=== PATIENT | female | born 1965 | race Caucasian/White ===

== ENCOUNTER → 2016-12-04 | Outpatient (CLI) | payer BC, MEDICARE | LOC: MW.CHFP 08:31 | PROVIDERS: ATTEND Nurse Practitioner Family | DX: Z00.00 Encounter for general adult medical examination without abnormal findings (principal); E03.9 Hypothyroidism, unspecified; M54.9 Dorsalgia, unspecified; G89.29 Other chronic pain; Z98.84 Bariatric surgery status | CPT/HCPCS: 36415; 80053; 80061; 80177; 82607; 82652; 82728; 84443; 85027 ==

== ENCOUNTER → 2017-01-18 | Outpatient (CLI) | payer BC, MEDICARE ==
--- NOTE | 2017-01-18 13:52 | MY ---
EXAMINATION: Bilateral digital mammography utilizing CAD. HISTORY: Screening exam. Comparison is made to previous studies dated 09/04/2013. FINDINGS: Bilateral fibroglandular densities. There been intervally placed subpectoral silicone implants. There is a single view asymmetry noted w ithin the inferior left breast, mid depth. Otherwise, no suspicious calcifications, masses or architectural distortions. No pathologic appearing lymph nodes, no abnormal skin thickening or nipple inversion. Other CAD highlighted regions appear normal at this time. IMPRESSION: BI-RADS category 0 - Incomplete study. Left breast diagnostic is needed for further evaluation. THE FALSE-NEGATIVE RATE OF MAMMOGRAM IS APPROXIMATELY 10%. MANAGEMENT OF A PALPABLE ABNORMALITY MUST BE BASED UPON CLINICAL GROUNDS. SENSITIVITY FOR DETECTION OF ABNORMALITIES IN DENSE BREASTS IS LOW. NOTE: A letter will be sent to the patient regarding findings. [facility] -- DARIELA Baptiste [phone] - FAX [phone]
== END ==
LOC: MW.MAM 09:17
PROVIDERS: ATTEND Nurse Practitioner Family
DX: Z12.31 Encounter for screening mammogram for malignant neoplasm of breast (principal)
CPT/HCPCS: G0202; G0202-26

== ENCOUNTER 2017-01-20 09:09 | Day surgery (SDC) | payer BC, MEDICARE ==
[~2017-01-20 09:09] MED LIST: Lactated Ringers 1,000 ML IV SCH; Sodium Chloride 0.9% 10 ML Syringe FLUSH PRN; Sodium Chloride 0.9% 2.5 ML Syringe FLUSH PRN
[2017-01-20] MEDS ORDERED: fentaNYL 100 MCG/2 ML SDV ONE (09:44)
[2017-01-20] MEDS ORDERED: Propofol 200 MG/20 ML SDV ONE ×2 (09:44→12:23)
[2017-01-20] MEDS ORDERED: Midazolam 1 MG/ML 2 ML SDV ONE (09:44)
--- NOTE | 2017-01-20 10:16 | PCM.PREANE ---
Preanesthetic Assessment - Anesthesia/Transfusion/Family Hx Anesthesia History: Prior Anesthesia Without Reaction Family History of Anesthesia Reaction: No Transfusion History: No Prior Transfusion(s) - Review of Systems General: No Symptoms Pulmonary: No Symptoms Cardiovascular: No Symptoms Gastrointestinal: Constipation Neurological: No Symptoms Other: Reports: None - Physical Assessment O2 Sat by Pulse Oximetry: 100 Respiratory Rate: 16 Vital Signs: Last Vital Signs Temp 36.4 C 01/20/17 09:43 Pulse 74 01/20/17 09:43 Resp 16 01/20/17 09:43 BP 92/74 01/20/17 09:43 Pulse Ox 100 01/20/17 09:43 Height: 1.65 m Weight: 75.2 kg ASA Class: 2 Mental Status: Alert & Oriented x3 Airway Class: Mallampati = 2 Dentition: Reports: Normal Dentition Thyro-Mental Finger Breadths: 3 Mouth Opening Finger Breadths: 2 ROM/Head Extension: Full Lungs: Clear to auscultation, Normal respiratory effort Cardiovascular: Regular Rate, Regular Rhythm - Allergies Allergies/Adverse Reactions: Allergies Allergy/AdvReac Type Severity Reaction Status Date / Time amoxicillin trihydrate Allergy Difficulty Verified 04/08/16 11:12 [From Augmentin] Breathing aspirin Allergy Vomiting Verified 04/08/16 11:12 ceftriaxone sodium Allergy Difficulty Verified 04/08/16 11:12 [From Rocephin] Breathing ciprofloxacin [From Cipro] Allergy Swelling Verified 01/18/17 08:16 codeine Allergy Difficulty Verified 04/08/16 11:12 Breathing morphine Allergy Hallucinati Verified 04/08/16 11:12 ons NSAIDS (Non-Steroidal Allergy Shortness Verified 01/18/17 08:16 Anti-Inflamma of Breath Penicillins Allergy Difficulty Verified 04/08/16 11:12 Breathing potassium clavulanate Allergy Difficulty Verified 04/08/16 11:12 [From Augmentin] Breathing all narcotics Allergy Lethargy Uncoded 01/18/17 08:17 - Blood Blood Available: No - Anesthesia Plan Pre-Op Medication Ordered: None - Acknowledgements Anesthesia Type Planned: MAC Pt an Appropriate Candidate for the Planned Anesthesia: Yes Alternatives and Risks of Anesthesia Discussed w Pt/Guardian: Yes Pt/Guardian Understands and Agrees with Anesthesia Plan: Yes PreAnesthesia Questionnaire Cardiovascular History: Reports: Other (see below) Other Cardiovascular History: HTN in the past but has lost weight and no longer needs to be on BP med Genitourinary History: Reports: None Musculoskeletal History: Reports: Back pain, chronic, Fracture Other Musculoskeletal History: arthropathy of sacroiliac joint, chronic pain syndrome, failed back syndrome Neurological History: Reports: Other (see below) Other Neuro History: AAT (alpha-1 antitrypsin) deficiency Psychiatric History: Reports: Anxiety, Depression Endocrine/Metabolic History: Reports: Hypothyroidism - Infectious Disease History Infectious Disease History: Reports: Chicken pox, Mumps - Past Surgical History GI Surgical History: Reports: Colonoscopy (multiple, last one 2012, h/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), Other (see below) (gastric band procedure) Female Surgical History: Reports: Hysterectomy Musculoskeletal Surgical History: Reports: Other (see below) (ankle surgery) Other Musculoskeletal Surgeries/Procedures:: back fusion - SUBSTANCE USE Smoking Status *Q: Never Smoker Second Hand Smoke Exposure: No Days Per Week of Alcohol Use: 0 Recreational Drug Use History: No - HOME MEDS Home Medications: Home Meds Fexofenadine [Susan] 180 mg PO DAILY 02/21/14 [History] Levothyroxine 0.05 mg PO DAILY 02/21/14 [History] DULoxetine [Cymbalta] 30 mg PO DAILY 04/08/16 [History] Ascorbate Calcium [Vitamin C] 500 mg PO DAILY 01/18/17 [History] L.acidoph,Paracasei, B.lactis [Probiotic] 1 tab PO DAILY 01/18/17 [History] Ultra Inflamax 1 dose PO DAILY 01/18/17 [History] - CURRENT (IN HOUSE) MEDS Current Meds: Current Medications Lactated Ringer's (Ringers, Lactated) 1,000 mls @ 125 mls/hr IV ASDIRECTED ENMA Last Admin: 01/20/17 09:45 Dose: 125 mls/hr Sodium Chloride (Saline Flush) 10 ml FLUSH ASDIRECTED PRN PRN Reason: Keep Vein Open Sodium Chloride (Saline Flush) 2.5 ml FLUSH ASDIRECTED PRN PRN Reason: Keep Vein Open Discontinued Medications Fentanyl (Sublimaze) Confirm Administered Dose 100 mcg .ROUTE .STK-MED ONE Stop: 01/20/17 09:45 Midazolam HCl (Versed 1 Mg/Ml) Confirm Administered Dose 2 mg .ROUTE .STK-MED ONE Stop: 01/20/17 09:45 Propofol (Diprivan 20 Ml) Confirm Administered Dose 200 mg .ROUTE .STK-MED ONE Stop: 01/20/17 09:45
--- NOTE | 2017-01-20 12:02 | PCM.OPNOTE ---
- General Post-Op/Procedure Note Date of Surgery/Procedure: 01/20/17 Operative Procedure(s): Colonoscopy Findings: Normal colon with mild diverticulosis Pre Op Diagnosis: History of colon polyps Post-Op Diagnosis: Diverticulosis Anesthesia Technique: KARLA Primary Surgeon: Irina Dickinson Condition: Good
--- NOTE | 2017-01-20 12:25 | PCM.POSTAN ---
POST ANESTHESIA ASSESSMENT - MENTAL STATUS Mental Status: alert, oriented - RESPIRATORY Respiratory Status: respiratory rate WNL, airway patent, O2 saturation stable - CARDIOVASCULAR CV Status: pulse rate WNL, blood pressure stable - GASTROINTESTINAL GI Status: no symptoms - POST OP HYDRATION Hydration Status: adequate & stable - OBSERVATIONS Free Text/Narrative:: no anesthesia problems
[2017-01-20 12:32] VITALS: BP 100/58
--- NOTE | 2017-01-20 20:15 | OR ---
SURGEON: LUIS ALBERTO CROCKER MD DATE OF PROCEDURE: 01/20/2017 PREOPERATIVE DIAGNOSIS: Screening colonoscopy. POSTOPERATIVE DIAGNOSIS: Diverticulosis. PROCEDURE PERFORMED: Screening colonoscopy. INSTRUMENT USED: Olympus colonoscope. ANESTHESIA: MAC. EXTENT OF EXAM: To the cecum. PREPARATION: Good. LIMITATIONS: None. INDICATIONS FOR EXAMINATION: The patient is a 51-year-old female, who presents for screening colonoscopy. The patient and I discussed the procedure as well as expected perioperative course. We discussed the risks including bleeding, infection, damage to surrounding structures including perforation. The patient verbalized understanding and wishes to proceed. PROCEDURE IN DETAIL: The patient was brought into the endoscopy suite and placed in a left lateral decubitus position. A time-out was completed verifying the patient's name, age, date of , allergies, and procedure to be performed. Monitored anesthesia care was induced and oxygen was provided via nasal cannula throughout the procedure. After adequate sedation was achieved, a digital rectal exam was performed. This exam was within normal limits. A well lubricated colonoscope was then inserted in the rectum and advanced under direct visualization to the level of cecum. The cecum was identified by both visual and anatomic landmarks. A photograph was taken of the cecal cap as well as with the scope retroflexed within the cecum. The scope was then straightened out and fully withdrawn while examining the color, texture, anatomy, and integrity of the mucosa from the cecum to the anal canal. The findings were consistent with diverticulosis within the sigmoid colon. The scope was then brought into the rectum and retroflexed to allow visualization of the anal canal opening. This appeared normal and a photograph was taken. The scope was straightened out and removed from the patient. The procedure was terminated and the patient was transferred to the recovery room in stable condition. Cecum to anus time was 10 min. ENDOSCOPIC DIAGNOSIS: Diverticulosis. RECOMMENDATION: Follow up in clinic in 2 weeks. GEO MANCILLA /[id number] MTDD
== END 2017-01-20 12:34 | disposition home or self-care (01) ==
LOC: MW.SDS 09:09
PROVIDERS: ATTEND Surgery
PROC: 0DJD8ZZ Inspection of Lower Intestinal Tract, Via Natural or Artificial Opening Endoscopic (ICD-10-PCS; principal; 2017-01-20)
DX: Z12.11 Encounter for screening for malignant neoplasm of colon (principal); K57.30 Diverticulosis of large intestine without perforation or abscess without bleeding; E88.01 Alpha-1-antitrypsin deficiency; G89.4 Chronic pain syndrome; M96.1 Postlaminectomy syndrome, not elsewhere classified; E03.9 Hypothyroidism, unspecified; I10 Essential (primary) hypertension; F41.9 Anxiety disorder, unspecified; F32.9 Major depressive disorder, single episode, unspecified; Z86.010 Personal history of colon polyps; Z88.0 Allergy status to penicillin; Z88.1 Allergy status to other antibiotic agents; Z88.5 Allergy status to narcotic agent; Z88.6 Allergy status to analgesic agent; Z88.8 Allergy status to other drugs, medicaments and biological substances; Z79.899 Other long term (current) drug therapy; Z98.84 Bariatric surgery status; Z90.710 Acquired absence of both cervix and uterus; Z98.890 Other specified postprocedural states
CPT/HCPCS: 45378; J2250; J3010; J7120; J2704

== ENCOUNTER → 2017-02-01 | Outpatient (CLI) | payer BC, MEDICARE ==
--- NOTE | 2017-02-01 14:44 | MY ---
EXAMINATION: Left digital diagnostic mammogram. HISTORY: Abnormal screening. Comparison is made to previous studies dated 01/18/2017. FINDINGS: A left ML view was obtained and spot compression image was obtained in the MLO projection . The previously demonstrated asymmetry noted on the MLO images does not persist following spot comp ression. This likely represents summation artifact. Benign dermal calcifications are noted. IMPRESSION: BI-RADS category I - negative mammogram. Continued screening according to ACR-ACS gu idelines suggested. THE FALSE-NEGATIVE RATE OF MAMMOGRAM IS APPROXIMATELY 10%. MANAGEMENT OF A PALPABLE ABNORMALITY MUST BE BASED UPON CLINICAL GROUNDS. SENSITIVITY FOR DETECTION OF ABNORMALITIES IN DENSE BREASTS IS LOW. NOTE: A letter will be sent to the patient regarding findings. [facility] -- DARIELA Baptiste [phone] - FAX [phone]
== END ==
LOC: MW.MAM 08:54
PROVIDERS: ATTEND Nurse Practitioner Family
DX: R92.8 Other abnormal and inconclusive findings on diagnostic imaging of breast (principal)
CPT/HCPCS: G0206-26-LT; G0206-LT

== ENCOUNTER 2018-12-15 22:18 | Emergency (ER) | payer BC, MEDICARE ==
[2018-12-15] MEDS ORDERED: Sodium Chloride 0.9% 10 ML Syringe FLUSH PRN (22:38)
[2018-12-15] MEDS ORDERED: Sodium Chloride 0.9% 1,000 ML IV ONE (22:38)
[2018-12-15] MEDS ORDERED: Sodium Chloride 0.9% 2.5 ML Syringe FLUSH PRN (22:38)
--- NOTE | 2018-12-15 22:43 | EDM.PDOC ---
ED HPI GENERAL MEDICAL PROBLEM - General Chief Complaint: Gastrointestinal Problem Stated Complaint: BODY PAIN Time Seen by Provider: 12/15/18 22:31 - History of Present Illness INITIAL COMMENTS - FREE TEXT/NARRATIVE: HISTORY AND PHYSICAL: History of present illness: Patient is a 53-year-old female who just started seeing Dr. Henson at [facility] and presents with complaints of a week and a half of diarrhea upwards of 10 stools a day which has now stopped today and concerned about her potassium level. The patient has chronic back pain and chronic joint pain and says that when her potassium is low she "locks up". Patient says she's had no nausea or vomiting no fevers chills chest pain or shortness of breath and she currently is having no abdominal pain. Throughout the course of her diarrhea she did not take any artj-gje-deudomo meds and she says that because of all her medication sensitivities she is afraid to take any new meds. For her chronic pain she does not take any pain pills nor to she seen a pain specialist. The patient says she is having pain at her right shoulder her left leg and she is concerned that her whole body will start aching due to the potential of low potassium. Review of systems: As per history of present illness and below otherwise all systems reviewed and negative. Past medical history: As per history of present illness and as reviewed below otherwise noncontributory. Surgical history: As per history of present illness and as reviewed below otherwise noncontributory. Social history: No reported history of drug or alcohol abuse. Family history: As per history of present illness and as reviewed below otherwise noncontributory. Physical exam: General: Well-developed well-nourished female who is anxious on my evaluation and vital signs were noted by me. She moves easily in the ED without distress HEENT: Atraumatic, normocephalic, pupils reactive, negative for conjunctival pallor or scleral icterus, mucous membranes moist, throat clear, neck supple, nontender, trachea midline. Lungs: Clear to auscultation, breath sounds equal bilaterally, chest nontender. Heart: S1S2, regular rate and rhythm no overt murmurs Abdomen: Soft, nondistended, nontender. Negative for masses or hepatosplenomegaly. NABS Pelvis: Deferred Genitourinary: Deferred. Rectal: Deferred. Extremities: Atraumatic, negative for cords or calf pain. Neurovascular unremarkable. The patient will not really let me evaluate her right shoulder as I barely touch the skin surface and she pulls away from me saying that that is exquisitely tender. There are no gross bony deformities or bony architecture abnormalities seen in her legs are nontender with full range of motion and no defects or deformities Neuro: Awake, alert, oriented. Cranial nerves II through XII unremarkable. Cerebellum unremarkable. Motor and sensory unremarkable throughout. Exam nonfocal. Diagnostics: CBC CMP magnesium level CPK Therapeutics: IV fluids Patient declined anything for pain management and she only wants the above treatments and nothing more. She says she only wants to know about her potassium level Impression: Worried well, history of diarrhea resolved Definitive disposition and diagnosis as appropriate pending reevaluation and review of above. Generalized Pain Score (Numeric/FACES): 10 - Related Data Allergies Allergy/AdvReac Type Severity Reaction Status Date / Time amoxicillin trihydrate Allergy Difficulty Verified 12/15/18 22:35 [From Augmentin] Breathing aspirin Allergy Vomiting Verified 12/15/18 22:35 ceftriaxone sodium Allergy Difficulty Verified 12/15/18 22:35 [From Rocephin] Breathing ciprofloxacin [From Cipro] Allergy Swelling Verified 12/15/18 22:35 codeine Allergy Difficulty Verified 12/15/18 22:35 Breathing morphine Allergy Hallucinati Verified 12/15/18 22:35 ons NSAIDS (Non-Steroidal Allergy Shortness Verified 12/15/18 22:35 Anti-Inflamma of Breath Penicillins Allergy Difficulty Verified 12/15/18 22:35 Breathing potassium clavulanate Allergy Difficulty Verified 12/15/18 22:35 [From Augmentin] Breathing all narcotics Allergy Lethargy Uncoded 12/15/18 22:35 Home Meds: Home Meds Fexofenadine [Susan] 180 mg PO DAILY 12/15/18 [History] Levothyroxine 75 mcg PO ACBREAKFAST 12/15/18 [History] Zolpidem [Ambien] 10 mg PO BEDTIME PRN 12/15/18 [History] Past Medical History Cardiovascular History: Reports: Other (See Below) Other Cardiovascular History: HTN in the past but has lost weight and no longer needs to be on BP med Genitourinary History: Reports: None Musculoskeletal History: Reports: Back Pain, Chronic, Fracture Other Musculoskeletal History: arthropathy of sacroiliac joint, chronic pain syndrome, failed back syndrome Neurological History: Reports: Other (See Below) Other Neuro History: AAT (alpha-1 antitrypsin) deficiency Psychiatric History: Reports: Anxiety, Depression Endocrine/Metabolic History: Reports: Hypothyroidism - Infectious Disease History Infectious Disease History: Reports: Chicken Pox, Mumps - Past Surgical History GI Surgical History: Reports: Colonoscopy, Other (See Below) Neurological Surgical History: Reports: Lumbar Spine Musculoskeletal Surgical History: Reports: Other (See Below) Social & Family History - Family History Family Medical History: Noncontributory ED ROS GENERAL - Review of Systems Review Of Systems: ROS reveals no pertinent complaints other than HPI. ED EXAM, GENERAL - Physical Exam Exam: See Below (See dictation) Course - Vital Signs Last Recorded V/S: Last Vital Signs Temp 36.4 C 12/15/18 22:32 Pulse 101 H 12/15/18 22:32 Resp 20 12/15/18 22:32 BP 109/80 12/15/18 22:32 Pulse Ox 99 12/15/18 22:32 - Orders/Labs/Meds Orders: Active Orders 24 hr Category Date Time Status Sodium Chloride 0.9% [Saline Flush] Med 12/15/18 22:38 Active 10 ml FLUSH ASDIRECTED PRN Sodium Chloride 0.9% [Saline Flush] Med 12/15/18 22:38 Active 2.5 ml FLUSH ASDIRECTED PRN Saline Lock Insert [OM.PC] Stat Oth 12/15/18 22:38 Ordered Medication Orders Sodium Chloride (Saline Flush) 10 ml FLUSH ASDIRECTED PRN PRN Reason: Keep Vein Open Sodium Chloride (Saline Flush) 2.5 ml FLUSH ASDIRECTED PRN PRN Reason: Keep Vein Open Labs: Laboratory Tests 12/15/18 12/15/18 Range/Units 22:43 22:43 WBC 10.69 (4.0-11.0) K/uL RBC 4.25 L (4.30-5.90) M/uL Hgb 13.4 (12.0-16.0) g/dL Hct 39.3 (36.0-46.0) % MCV 92.5 (80.0-98.0) fL MCH 31.5 (27.0-32.0) pg MCHC 34.1 (31.0-37.0) g/dL RDW Std Deviation 47.0 (28.0-62.0) fl RDW Coeff of Thaddeus 14 (11.0-15.0) % Plt Count 248 (150-400) K/uL MPV 9.40 (7.40-12.00) fL Add Manual Diff YES Neutrophils % (Manual) 56 (48.0-80.0) % Band Neutrophils % 8 % Lymphocytes % (Manual) 22 (16.0-40.0) % Monocytes % (Manual) 13 (0.0-15.0) % Eosinophils % (Manual) 1 (0.0-7.0) % Nucleated RBC % 0.0 /100WBC Absolute Seg Neuts 6.0 H (1.4-5.7) Band Neutrophils # 0.9 Lymphocytes # (Manual) 2.4 (0.6-2.4) Monocytes # (Manual) 1.4 H (0.0-0.8) Eosinophils # (Manual) 0.1 (0.0-0.7) Nucleated RBCs # 0 K/uL Sodium 142 (136-145) mmol/L Potassium 3.7 (3.5-5.1) mmol/L Chloride 106 (98-107) mmol/L Carbon Dioxide 27.0 (21.0-32.0) mmol/L BUN 12 (7.0-18.0) mg/dL Creatinine 1.0 (0.6-1.0) mg/dL Est Cr Clr Drug Dosing 57.87 mL/min Estimated GFR (MDRD) 57.8 ml/min Glucose 120 H (74-106) mg/dL Calcium 8.4 L (8.5-10.1) mg/dL Magnesium 2.0 (1.8-2.4) mg/dL Total Bilirubin 0.5 (0.2-1.0) mg/dL AST 11 L (15-37) IU/L ALT 14 (14-63) IU/L Alkaline Phosphatase 89 (46-116) U/L Creatine Kinase 101 (26-308) U/L Total Protein 7.1 (6.4-8.2) g/dL Albumin 3.6 (3.4-5.0) g/dL Globulin 3.5 (2.6-4.0) g/dL Albumin/Globulin Ratio 1.0 (0.9-1.6) Meds: Medications Generic Name Dose Route Start Last Admin Trade Name Freq PRN Reason Stop Dose Admin Sodium Chloride 10 ml 12/15/18 22:38 Saline Flush FLUSH ASDIRECTED PRN Keep Vein Open Sodium Chloride 2.5 ml 12/15/18 22:38 Saline Flush FLUSH ASDIRECTED PRN Keep Vein Open Discontinued Medications Generic Name Dose Route Start Last Admin Trade Name Freq PRN Reason Stop Dose Admin Sodium Chloride 1,000 mls @ 999 mls/hr 12/15/18 22:38 12/15/18 22:50 Normal Saline IV 12/15/18 23:38 999 mls/hr STAT ONE Administration Departure - Departure Time of Disposition: 23:50 Disposition: Home, Self-Care 01 Condition: Good Clinical Impression: Worried well, Diarrhea - Discharge Information Referrals: PCP,None [Primary Care Provider] - Forms: ED Department Discharge Additional Instructions: The following information is given to patients seen in the emergency department who are being discharged to home. This information is to outline your options for follow-up care. We provide all patients seen in our emergency department with a follow-up referral. The need for follow-up, as well as the timing and circumstances, are variable depending upon the specifics of your emergency department visit. If you don't have a primary care physician on staff, we will provide you with a referral. We always advise you to contact your personal physician following an emergency department visit to inform them of the circumstance of the visit and for follow-up with them and/or the need for any referrals to a consulting specialist. The emergency department will also refer you to a specialist when appropriate. This referral assures that you have the opportunity for followup care with a specialist. All of these measure are taken in an effort to provide you with optimal care, which includes your followup. Under all circumstances we always encourage you to contact your private physician who remains a resource for coordinating your care. When calling for followup care, please make the office aware that this follow-up is from your recent emergency room visit. If for any reason you are refused follow-up, please contact the [facility] emergency department at and ask to speak to the emergency department charge nurse. [facility] Primary care- Internal Medicine and Family [facility] [address] [place] [address] [place] [address] Please contact your new provider at [facility] Dr. Henson for further care and evaluation or one of our providers in the clinic. Return to ER as needed and as discussed. Push hydration and eat potassium-rich foods such as bananas whole gr and vegetables. - My Orders Last 24 Hours: My Active Orders 12/15/18 22:38 Sodium Chloride 0.9% [Saline Flush] 10 ml FLUSH ASDIRECTED PRN Sodium Chloride 0.9% [Saline Flush] 2.5 ml FLUSH ASDIRECTED PRN Saline Lock Insert [OM.PC] Stat - Assessment/Plan Last 24 Hours: My Active Orders 12/15/18 22:38 Sodium Chloride 0.9% [Saline Flush] 10 ml FLUSH ASDIRECTED PRN Sodium Chloride 0.9% [Saline Flush] 2.5 ml FLUSH ASDIRECTED PRN Saline Lock Insert [OM.PC] Stat
[2018-12-16 03:39] VITALS: BP 109/65
== END 2018-12-16 00:15 | disposition home or self-care (01) ==
LOC: MW.ED 22:18
DX: R19.7 Diarrhea, unspecified (principal); F32.9 Major depressive disorder, single episode, unspecified; E03.9 Hypothyroidism, unspecified; F41.9 Anxiety disorder, unspecified; Z71.1 Person with feared health complaint in whom no diagnosis is made; Z88.1 Allergy status to other antibiotic agents; Z88.5 Allergy status to narcotic agent; Z88.0 Allergy status to penicillin; Z79.899 Other long term (current) drug therapy
CPT/HCPCS: 36415; 80053; 82550; 83735; 85025; 96360; 99283; J7040

== ENCOUNTER 2022-12-02 08:46 | Emergency (ER) | payer BC, MEDICARE ==
[2022-12-02] MEDS ORDERED: Ondansetron 4 MG Tab.DIS PO ONE (09:41)
[2022-12-02] MEDS ORDERED: Sodium Chloride 0.9% 1,000 ML IV ONE (10:12)
[2022-12-02 11:22] LABS: POTASSIUM,K 4.6 mmol/L (3.5-5.1)
[2022-12-02] MEDS ORDERED: Ondansetron 4 MG/2 ML SDV IVPUSH ONE (11:25)
[2022-12-02] MEDS ORDERED: Iopamidol 755 MG/ML 500 ML Multipack Bottle IVPUSH STA (12:08)
[2022-12-02] MEDS ORDERED: Promethazine 25 MG/ML SDV IM ONE (16:00)
[2022-12-02 16:13] VITALS: BP 143/86; PULSE 60
== END 2022-12-02 16:32 ==
LOC: MW.ED 08:46
DX: K56.609 Unspecified intestinal obstruction, unspecified as to partial versus complete obstruction (principal); R11.2 Nausea with vomiting, unspecified; I10 Essential (primary) hypertension; E03.9 Hypothyroidism, unspecified; Z88.0 Allergy status to penicillin; Z88.5 Allergy status to narcotic agent; Z88.1 Allergy status to other antibiotic agents; Z88.8 Allergy status to other drugs, medicaments and biological substances; Z79.899 Other long term (current) drug therapy; Z98.84 Bariatric surgery status
CPT/HCPCS: 36415; 74177; 74177-26; 80053; 83690; 85025; 96372; 96374; 99284; 99285-25; A9270-GY; J2405; J2550; J7030; Q9967